=== PATIENT | female | born 1985 | race Caucasian/White ===

== ENCOUNTER 2018-02-28 07:42 | Emergency (ER) | payer OTHER ==
[~2018-02-28] VITALS: Ht 160 cm; Wt 56.7 kg
[2018-02-28] MEDS ORDERED: VALACYCLOVIR500 MG (08:04)
[2018-02-28] MEDS ORDERED: BRINTELLIX5 MG (08:04)
[2018-02-28] MEDS ORDERED: Norco 5-325 Ta1 EACH PO (09:36)
== END 2018-02-28 10:15 | disposition home or self-care (01) ==
LOC: ER 07:42
DX: S51.811A Laceration without foreign body of right forearm, initial encounter (principal); W26.0XXA Contact with knife, initial encounter; Z79.899 Other long term (current) drug therapy; F32.9 Major depressive disorder, single episode, unspecified
CPT/HCPCS: 12034; 90471; 90714; 99283

== ENCOUNTER → 2018-11-09 | Outpatient (CLI) | payer OTHER ==
[~2018-11-09] MED LIST: BRINTELLIX5 MG; CITA20; CYCL10; ESTARYLLA1 EACH; IBUP400; Norco 5-325 Ta1 EACH PO; VALACYCLOVIR500 MG
[2018-11-13 15:08] LABS: HPV 16 Negative (Negative); HPV 18 Negative (Negative); HPV OTHER HR TYPES Negative (Negative)
== END | disposition home or self-care (01) ==
LOC: LAB 10:30 → LAB SHORT 10:30
PROVIDERS: Obstetrics & Gynecology
DX: Z01.419 Encounter for gynecological examination (general) (routine) without abnormal findings (principal)
CPT/HCPCS: 87624; G0123

== ENCOUNTER 2018-12-20 07:00 | Day surgery (SDC) | payer OTHER ==
[~2018-12-20] VITALS: Ht 162.6 cm; Wt 57.9 kg
[~2018-12-20 07:00] MED LIST changes: -CITA20; -CYCL10; -ESTARYLLA1 EACH; -IBUP400
[2018-12-20] MEDS ORDERED: CITA20 (07:46)
[2018-12-20] MEDS ORDERED: ESTARYLLA1 EACH (07:46)
[2018-12-20] MEDS ORDERED: IBUP400 (07:46)
[2018-12-20] MEDS ORDERED: CYCL10 (07:46)
--- NOTE | 2018-12-20 09:59 | NUR ---
12/20/18 0959 Kennedi Benjamin V PT RESTING IN RECLINER, CALL LIGHT WITHIN REACH, FAMILY AT CHAIR-SIDE, VSS. PT TOLERATING PO NURISHMENTS, DENIES NAUSEA, REPORTS PAIN 2/10 IN ABDOMEN BUT DOES NOT REQUIRE ANY INTERVENTIONS AT THIS TIME.
== END 2018-12-20 10:23 | disposition home or self-care (01) ==
LOC: ORSCSDS 07:00
PROVIDERS: Obstetrics & Gynecology
PROC: 0UT74ZZ Resection of Bilateral Fallopian Tubes, Percutaneous Endoscopic Approach (ICD-10-PCS; principal; 2018-12-20 08:15)
DX: Z30.2 Encounter for sterilization (principal); A60.04 Herpesviral vulvovaginitis; F32.9 Major depressive disorder, single episode, unspecified; Z79.899 Other long term (current) drug therapy; Z79.3 Long term (current) use of hormonal contraceptives
CPT/HCPCS: 88302; J1100; J1885; J2250; J2405; J2710; J3010; J7120

== ENCOUNTER → 2018-12-27 | Outpatient (CLI) | payer OTHER ==
[~2018-12-27] MED LIST changes: +CITA20; +CYCL10; +ESTARYLLA1 EACH; +IBUP400
== END ==
LOC: LAB SHORT 13:47 → LAB EV 13:47
DX: R11.2 Nausea with vomiting, unspecified (principal); Z79.899 Other long term (current) drug therapy
CPT/HCPCS: 87086

== ENCOUNTER → 2023-04-04 | Outpatient (CLI) | payer OTHER | END | disposition home or self-care (01) | LOC: LAB 16:29 → LAB SHORT 16:29 | DX: N39.0 Urinary tract infection, site not specified (principal) | CPT/HCPCS: 87077; 87086; 87186 ==

== ENCOUNTER → 2023-06-12 | Outpatient (CLI) | payer OTHER | LOC: LAB 17:28 | DX: Z12.4 Encounter for screening for malignant neoplasm of cervix (principal) ==